=== PATIENT | male | born 1940 ===

== ENCOUNTER 2019-01-08 11:15 | Emergency (ER) | payer OTHER ==
[~2019-01-08] VITALS: Ht 170.2 cm; Wt 83.9 kg
[2019-01-08] MEDS ORDERED: TENORMIN50 M1 PO (11:39)
[2019-01-08] MEDS ORDERED: HYZAAR 50-12.51 EACH PO (11:39)
== END 2019-01-08 15:23 | disposition home or self-care (01) ==
LOC: ER 11:15
DX: R42 Dizziness and giddiness (principal)

== ENCOUNTER 2019-04-15 11:13 | Outpatient (CLI) | payer OTHER ==
[~2019-04-15 11:13] MED LIST: HYZAAR 50-12.51 EACH PO; TENORMIN50 M1 PO
== END 2019-04-15 11:15 | disposition home or self-care (01) ==
LOC: SONOGRAMA 11:13
DX: M12.531 Traumatic arthropathy, right wrist (principal); M71.331 Other bursal cyst, right wrist

== ENCOUNTER 2020-07-11 18:53 | Inpatient (IN) | payer OTHER ==
[~2020-07-11] VITALS: Ht 165.1 cm; Wt 55.0 kg
[2020-07-21] MEDS ORDERED: HYZAAR 50-12.51 EACH PO (12:53)
[2020-07-21] MEDS ORDERED: POM (MEDICAMENTO EN PO (12:53)
[2020-07-21] MEDS ORDERED: TAMS0.4C PO (12:53)
[2020-07-21] MEDS ORDERED: INTESTINEX680 M1 PO (12:53)
[2020-07-21] MEDS ORDERED: TENORMIN50 M1 PO (12:53)
== END 2020-07-21 14:14 | disposition home or self-care (01) | DRG 372 ==
LOC: ER 18:53 → MEDI 07-12 10:35
PROVIDERS: ADMIT Internal Medicine Geriatric Medicine; ATTEND Internal Medicine Geriatric Medicine
PROC: 0W9F30Z Drainage of Abdominal Wall with Drainage Device, Percutaneous Approach (ICD-10-PCS; principal; 2020-07-13)
DX: K35.33 Acute appendicitis with perforation, localized peritonitis, and gangrene, with abscess (principal); N39.0 Urinary tract infection, site not specified; I10 Essential (primary) hypertension; Z20.828 Contact with and (suspected) exposure to other viral communicable diseases; E86.0 Dehydration; B96.29 Other Escherichia coli [E. coli] as the cause of diseases classified elsewhere

== ENCOUNTER 2020-10-03 09:41 | Outpatient (CLI) | payer OTHER ==
[~2020-10-03 09:41] MED LIST changes: +INTESTINEX680 M1 PO; +POM (MEDICAMENTO EN PO; +TAMS0.4C PO
[2020-10-06] MEDS ORDERED: HYZAAR 50-12.51 EACH PO (14:39)
[2020-10-06] MEDS ORDERED: DUTASTERIDE-TA1 EACH PO (14:40)
[2020-10-06] MEDS ORDERED: AMLODIP PO (14:41)
[2020-10-06] MEDS ORDERED: FAMOTID PO (14:41)
== END 2020-10-03 09:46 | disposition home or self-care (01) ==
LOC: LAB 09:41
PROVIDERS: ATTEND Surgery
DX: K35.32 Acute appendicitis with perforation, localized peritonitis, and gangrene, without abscess (principal)

== ENCOUNTER 2020-10-08 05:55 | Day surgery (SDC) | payer OTHER ==
[~2020-10-08 05:55] MED LIST changes: +AMLODIP PO; +DUTASTERIDE-TA1 EACH PO; +FAMOTID PO
[2020-10-08] MEDS ORDERED: PERCOCET 5-3251 EACH PO (09:01)
[2020-10-08] MEDS ORDERED: PEPCID AC20 MG PO (09:02)
[2020-10-08] MEDS ORDERED: INTESTINEX680 M1 PO (09:02)
== END 2020-10-08 12:25 | disposition home or self-care (01) ==
LOC: CIR.AMB 05:55
PROVIDERS: ATTEND Surgery
DX: D12.1 Benign neoplasm of appendix (principal); Z20.822 Contact with and (suspected) exposure to COVID-19

== ENCOUNTER 2022-11-07 14:08 | Outpatient (CLI) | payer OTHER ==
[~2022-11-07 14:08] MED LIST changes: +PEPCID AC20 MG PO; +PERCOCET 5-3251 EACH PO
== END 2022-11-07 14:11 | disposition home or self-care (01) ==
LOC: RAD 14:08
PROVIDERS: ATTEND Physical Medicine & Rehabilitation Sports Medicine
DX: M19.041 Primary osteoarthritis, right hand (principal); M19.042 Primary osteoarthritis, left hand; M18.10 Unilateral primary osteoarthritis of first carpometacarpal joint, unspecified hand